=== PATIENT | male | born 1960 | race Caucasian/White ===

== ENCOUNTER 2017-06-14 15:21 | Emergency (ER) | payer SELFPAY ==
[~2017-06-14] VITALS: Ht 177.8 cm; Wt 75.0 kg
[2017-06-14 15:23] VITALS: BP 132/87
== END 2017-06-14 16:09 | disposition left against medical advice (07) ==
LOC: ER 15:41
DX: Z53.21 Procedure and treatment not carried out due to patient leaving prior to being seen by health care provider (principal)